=== PATIENT | male | born 1970 | race Caucasian/White ===

== ENCOUNTER 2018-03-15 18:21 | Emergency (ER) | payer OTHER ==
[~2018-03-15] VITALS: Ht 180.3 cm; Wt 93.0 kg
[2018-03-15 18:33] VITALS: BP 1146/94; Ht 180.3 cm; Wt 93.0 kg
== END 2018-03-15 19:33 | disposition home or self-care (01) ==
LOC: ED 18:21
DX: L23.7 Allergic contact dermatitis due to plants, except food (principal)
CPT/HCPCS: J2930